=== PATIENT | male | born 1935 | race Caucasian/White ===

== ENCOUNTER 2017-05-14 15:24 | Emergency (ER) | payer BC ==
[~2017-05-14] VITALS: Ht 172.7 cm; Wt 80.5 kg
[~2017-05-14 15:24] MED LIST: CETI10TA10 PO; DIPH25CA37 PO; DTR/5 PO; ENOX30IN4 SQ; EPP3/2 IM; FINA5TAB4 PO; HYDR25TA4 PO; LOSA50TA6 PO; METO-478 PO; PRAV10TA39 PO; PSYL58.69 PO; TERA1CAP63 PO; WARF5TAB90 PO
[2017-05-14 15:28] VITALS: TEMP 36.8; Ht 172.7 cm; Wt 80.5 kg
[2017-05-14] MEDS ORDERED: LOSA1TAB38 PO (16:33)
[2017-05-14] MEDS ORDERED: DIPH25CA5 PO (16:33)
[2017-05-14] MEDS ORDERED: PSYL48.59 PO (16:33)
[2017-05-14] MEDS ORDERED: DTR/5 PO (16:33)
[2017-05-14] MEDS ORDERED: POTA20TA16 PO (16:33)
[2017-05-14] MEDS ORDERED: PRED-603 PO (16:33)
--- NOTE | 2017-05-14 16:59 | DIAGNOSTIC IMAGING REPORT ---
CHEST ONE VIEW PORTABLE CLINICAL HISTORY: Hypertension. COMPARISON STUDY: Chest radiograph June 30, 2013. FINDINGS: Lung volumes are normal. No pneumothorax or pleural effusion is present. There is no evidence for pulmonary edema. Moderate cardiomegaly is noted. IMPRESSION: 1. No acute cardiopulmonary findings. 2. Moderate cardiomegaly. Electronically signed by: Stevo Gonzalez M.D. 05/14/2017 4:57 PM Dictated Date/Time: 05/14/2017 4:57 PM
[2017-05-14 17:52] LABS: BASO % 0.4 %; BASO ABS # 0.02 K/uL (0-0.2); EOS % 1.4 %; EOS ABS # 0.07 K/uL (0-0.5); HEMATOCRIT 41.2 % (42-52); HEMOGLOBIN 13.9 g/dL (14.0-18.0); IG# 0.01 K/uL (0.00-0.02); LYMPH % 29.2 %; LYMPH ABS # 1.43 K/uL (1.2-3.4); MEAN CELL VOLUME 91.6 fL (80-100); MEAN CORPUSCULAR HEMOGLOBIN 30.9 pg (25-34); MEAN CORPUSCULAR HGB CONC 33.7 g/dl (32-36); MEAN PLATELET VOLUME 11.6 fL (7.4-10.4); MONO % 12.3 %; NEUT % 56.5 %; NEUT ABS # 2.76 K/uL (1.4-6.5); PLATELET COUNT 142 K/uL (130-400); RED CELL DISTRIBUTION WIDTH CV 13.5 % (11.5-14.5); RED CELL DISTRIBUTION WIDTH SD 44.8 fL (36.4-46.3); WHITE BLOOD COUNT 4.89 K/uL (4.8-10.8)
[2017-05-14 18:07] LABS: CALCIUM 9.4 mg/dl (8.5-10.1); CREATININE 0.9 mg/dl (0.60-1.40); POTASSIUM 3.8 mmol/L (3.5-5.1)
[2017-05-14 18:35] LABS: INR 2.1 (0.9-1.1)
[2017-05-14 19:21] VITALS: BP 160/106; PULSE 62; O2SAT 98
--- NOTE | 2017-05-14 23:44 | EMERGENCY ROOM VISIT NOTE ---
History Report prepared by Leelee: Berenice Alejandro Under the Supervision of: Dr. Joshua Stallings D.O. 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 The patient was at his PCP for a wellness check and his blood pressure was found to be high. He was sent to the ED. He is on Cozaar, HCTZ, and metoprolol. He has taken all of his medications. He is feeling well. He denies any headache, chest pain, SOB, nausea, vomiting, diarrhea, abdominal pain, or leg swelling. He is on Coumadin. Patient has absolutely no other complaints at this time. 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 A total of 10 systems reviewed and were otherwise negative. Past Medical & Surgical Medical Problems: (1) Hypertension Family History Noncontributory secondary to age. Social History Smoking Status: Never Smoker Marital Status: Occupation Status: retired Current/Historical Medications Scheduled Cetirizine Hcl (Zyrtec), 10 MG PO DAILY Epinephrine (Epipen), 0.3 MG IM UD Finasteride (Proscar), 5 MG PO HS Hydrochlorothiazide (Hctz), 25 MG PO QAM Losartan Potassium (Cozaar), 100 MG PO DAILY Metoprolol Succinate (Toprol Xl), 25 MG PO DAILY Oxybutynin Chloride (Ditropan), 5 MG PO DAILY Potassium Ext Rel (Klor-Con), 20 MEQ PO DAILY Pravastatin Sodium (Pravastatin Sodium), 10 MG PO HS Prednisone (Deltasone), 20 MG PO PRN Psyllium (Metamucil), 1 DOSE PO DAILY Terazosin Hcl (Hytrin), 10 MG PO HS Warfarin Sodium (Coumadin), 5 MG PO DAILY Scheduled PRN Diphenhydramine Hcl (Benadryl), 25 MG PO Q4H PRN for Allergic Reaction Allergies Coded Allergies: Aspirin (Verified Allergy, Unknown, SWELLING, 5/23/13) Physical Exam Vital Signs Date Time Temp Pulse Resp B/P (MAP) Pulse Ox O2 Delivery O2 Flow Rate FiO2 05/14/17 19:21 62 18 160/106 98 05/14/17 18:27 57 16 198/117 93 Room Air 05/14/17 16:46 71 05/14/17 16:40 57 156/95 05/14/17 15:28 36.8 82 17 197/111 98 Room Air Physical Exam GENERAL: Sitting up in bed, alert, well appearing, well nourished, no distress, non-toxic EYE EXAM: normal conjunctiva. PERRL and EOM's grossly intact. OROPHARYNX: no exudate, no erythema, lips, buccal mucosa, and tongue normal and mucous membranes are moist NECK: supple, no nuchal rigidity, no adenopathy, non-tender LUNGS: Clear to auscultation. Normal chest wall mechanics HEART: no murmurs, S1 normal and S2 normal ABDOMEN: abdomen soft, non-tender, normo-active bowel sounds, no masses, no rebound or guarding. BACK: Back is symmetrical on inspection and there is no deformity, no midline tenderness, no CVA tenderness. SKIN: no rashes and no bruising UPPER EXTREMITIES: upper extremities are grossly normal. LOWER EXTREMITIES: No pitting edema. NEURO EXAM: Normal sensorium, cranial nerves II-XII grossly intact, normal speech, no gross weakness of arms, no gross weakness of legs. Medical Decision & Procedures ER Provider Diagnostic Interpretation: Xray results as stated below per my and the radiologist's interpretation: CHEST ONE VIEW PORTABLE CLINICAL HISTORY: Hypertension. COMPARISON STUDY: Chest radiograph June 30, 2013. FINDINGS: Lung volumes are normal. No pneumothorax or pleural effusion is present. There is no evidence for pulmonary edema. Moderate cardiomegaly is noted. IMPRESSION: 1. No acute cardiopulmonary findings. 2. Moderate cardiomegaly. Electronically signed by: Stevo Gonzalez M.D. 05/14/2017 4:57 PM Dictated Date/Time: 05/14/2017 4:57 PM Laboratory Results 05/14/17 17:20 Red Blood Count 4.50, Mean Corpuscular Volume 91.6, Mean Corpuscular Hemoglobin 30.9, Mean Corpuscular Hemoglobin Concent 33.7, Mean Platelet Volume 11.6, Neutrophils (%) (Auto) 56.5, Lymphocytes (%) (Auto) 29.2, Monocytes (%) (Auto) 12.3, Eosinophils (%) (Auto) 1.4, Basophils (%) (Auto) 0.4, Neutrophils # (Auto ) 2.76, Lymphocytes # (Auto) 1.43, Monocytes # (Auto) 0.60, Eosinophils # (Auto ) 0.07, Basophils # (Auto) 0.02 05/14/17 17:20 Test 05/14/17 17:20 White Blood Count 4.89 K/uL (4.8-10.8) Red Blood Count 4.50 M/uL (4.7-6.1) Hemoglobin 13.9 g/dL (14.0-18.0) Hematocrit 41.2 % (42-52) Mean Corpuscular Volume 91.6 fL (80-100) Mean Corpuscular Hemoglobin 30.9 pg (25-34) Mean Corpuscular Hemoglobin Concent 33.7 g/dl (32-36) Platelet Count 142 K/uL (130-400) Mean Platelet Volume 11.6 fL (7.4-10.4) Neutrophils (%) (Auto) 56.5 % Lymphocytes (%) (Auto) 29.2 % Monocytes (%) (Auto) 12.3 % Eosinophils (%) (Auto) 1.4 % Basophils (%) (Auto) 0.4 % Neutrophils # (Auto) 2.76 K/uL (1.4-6.5) Lymphocytes # (Auto) 1.43 K/uL (1.2-3.4) Monocytes # (Auto) 0.60 K/uL (0.11-0.59) Eosinophils # (Auto) 0.07 K/uL (0-0.5) Basophils # (Auto) 0.02 K/uL (0-0.2) RDW Standard Deviation 44.8 fL (36.4-46.3) RDW Coefficient of Variation 13.5 % (11.5-14.5) Immature Granulocyte % (Auto) 0.2 % Immature Granulocyte # (Auto) 0.01 K/uL (0.00-0.02) Prothrombin Time 22.2 SECONDS (9.0-12.0) Prothromb Time International Ratio 2.1 (0.9-1.1) Anion Gap 4.0 mmol/L (3-11) Est Creatinine Clear Calc Drug Dose 60.2 ml/min Estimated GFR () 91.2 Estimated GFR (Non- 78.7 BUN/Creatinine Ratio 13.2 (10-20) Calcium Level 9.4 mg/dl (8.5-10.1) Laboratory results per my review. ECG Indication: other (hypertension) Rate (beats per minute): 53 Rhythm: atrial fibrillation Findings: Q waves (Septal), left axis deviation Comparison ECG Date: no prior available Change: Patient's electrocardiogram interpreted by me. ED Course ED COURSE: Vital signs were reviewed and showed hypertension. The patients medical record was reviewed The above diagnostic studies were performed and reviewed. ED treatments and interventions as stated above. 1607: The patient was evaluated in room C4. A complete history and physical examination was performed. 1705: Upon reevaluation, the patient is resting comfortably. I discussed my findings with the patient and he understands and agrees with the treatment plan. Based on the patients age, coexisting illnesses, exam and lab findings the decision to treat as an outpatient was made. The patient remained stable while under my care. The patient appeared well at the time of discharge. Medical Decision Differential diagnoses includes but is not limited to acute coronary syndrome, myocardial infarction, pericarditis, pulmonary embolus, aortic dissection, pneumonia, pneumothorax, musculoskeletal, shingles, esophageal. Patient is an 82-year-old male who presents to ER referred in by PCP for hypertension. He is evidently no complaints. Systolic pressures in the 190s. CBC and BMP was unremarkable. INR was therapeutic. EKG showed A. fib which is not new. Chest x-ray was unremarkable. Systolic blood pressures trended down to 150s while in the ER and resting. Will not treat at this time is asymptomatic. Patient was updated bedside and discharged follow-up with PCP as an outpatient. Discussed with Pt concerning signs and symptoms to watch out for. Pt was instructed to follow up with their PCP and discussed with the patient their option to return to the ED at anytime for persistent or worsening symptoms. The appropriate anticipatory guidance and out-patient management, including indications for return to the emergency department, were explained at length to the patient and understood. Medication Reconcilliation Current Medication List: was personally reviewed by me Blood Pressure Screening Patient's blood pressure: Elevated blood pressure Blood pressure disposition: Elevated BP felt to be situational Impression Primary Impression: HTN (hypertension) Scribe Attestation The scribe's documentation has been prepared under my direction and personally reviewed by me in its entirety. I confirm that the note above accurately reflects all work, treatment, procedures, and medical decision making performed by me. Departure Information Dispostion Home / Self-Care Referrals Jose Balderas MD (PCP) Forms HOME CARE DOCUMENTATION FORM, IMPORTANT VISIT INFORMATION, WORK / SCHOOL INSTRUCTIONS Patient Instructions ED HTN Established, My [facility] Additional Instructions Please follow up with your primary care doctor with in the next 24 hours. Any worsening of your symptoms, please return to the ED immediately. This includes any fevers greater than 100.4, worsening pain, chest pain, shortness breath, persistent nausea, vomiting, unable to eat or drink, or any other concerning signs or symptoms from your standpoint. Please follow up with your primary care doctor in regards to your elevated blood pressure. Problem Qualifiers Primary Impression: HTN (hypertension) Hypertension type: unspecified Qualified Codes: I10 - Essential (primary) hypertension
== END 2017-05-14 19:15 | disposition home or self-care (01) ==
LOC: C.EDB 15:25 → C.EDC 19:15
DX: I10 Essential (primary) hypertension (principal); I48.91 Unspecified atrial fibrillation; Z79.01 Long term (current) use of anticoagulants

== ENCOUNTER 2022-01-24 09:51 | Inpatient (IN) ==
[2022-01-24] MEDS ORDERED: VANCOMYCIN HCL 1,500 MG in SODIUM CHLORIDE 0.9% 500 ML IV ONE (10:09)
[2022-01-24] MEDS ORDERED: PIPERACILLIN/TAZOBACTAM 4.5 GM/120 ML BAG IV ONE (10:09)
[2022-01-24] MEDS ORDERED: VANCOMYCIN CONSULT ACTIVE PRN (10:09)
--- NOTE | 2022-01-24 10:09 | Emergency Department Note ---
Impression & Plan Postoperative wound infection ADMIT ED Provider Note HPI: The patient is an 86-year-old gentleman who presents the emergency department for evaluation of a possible infected pacemaker site/pocket. Patient presented to the cardiology office as an outpatient today for evaluation of some redness and some drainage that he had from the pacemaker site that was placed appro ximately 1 month ago on December 26. Patient states that he just noticed some redness and drainage from the site today and walked into the cardiology office with Dr. Claros today for evaluation. I did receive a phone call from Dr. Claros prior to the patient's arrival and he stated that the area did appear to be infected and patient likely would require admission for antibiotics and possibly site washout/revision and pacemaker reimplantation if determined appropriate. Patient denies any systemic symptoms, denies any fever, denies any chest pain or shortness of breath, he is overall well-appearing on arrival and in no acute distress. ROS: -Skin: Pacemaker site infection *10 point review systems was conducted and is otherwise negative unless stated above *Outpatient medications and allergy history reviewed PE: General: Alert HEENT: Normocephalic, trachea midline Eyes: Extraocular eye movement is intact, no scleral erythema Pulmonary: Clear to auscultation bilaterally, no wheezing Cardio: Regular rate and rhythm GI: Abdomen is soft, nontender : No suprapubic tenderness MSK: No evidence of trauma or malformation of the extremities, no edema Skin: There is mild wound dehiscence to the lateral aspect of the pacemaker pocket site with some surrounding erythema and minimal purulent drainage Neuro: Alert, no focal deficits 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 Pacemaker site does appear to have active infection with moderate surrounding erythema and purulent drainage. Blood cultures were drawn in the ED, wound culture also obtained, lab work is largely reassuring as the patient does not have any fever or leukocytosis. Patient will be admitted for broad-spectrum antibiotics and EP consultation to determine whether or not the site will require washout and revision and possible pacemaker reimplantation. Case was initially discussed with on-call cardiology, Dr. Claros. Case was then discussed with [facility] hospitalist, Dr. Kirk, and the patient was admitted in stable condition for further care. Diagnosis: 1. Postoperative wound infection of pacemaker site Disposition: Admission Ricardo Stubbs DO Emergency Medicine Past Med/Surg History Medical History (Updated 01/24/22 @ 12:38 by Ricardo Stubbs DO) DJD (degenerative joint disease) (07/27/13) HTN (hypertension) Hypertension Social History Smoking Status: Never smoker Hx Alcohol Use: No Hx Substance Use: No Beliefs That Will Affect Care: None Current Living Situation: Spouse Feels Safe at Home: Yes Assistive Devices: Cane Allergies Allergies Allergy/AdvReac Type Severity Reaction Status Date / Time aspirin Allergy Unknown SWELLING Verified 11/06/21 13:34 Home Meds Home Medications Medication Instructions Recorded Confirmed diphenhydramine HCl 25 mg tablet 25 mg PO TID PRN Edema 10/26/18 12/25/21 (Benadryl Allergy) epinephrine 0.3 mg/0.3 mL 0.3 mg IM Q10M PRN Edema 10/26/18 12/25/21 injection, auto-injector (EpiPen) losartan 100 mg tablet (Cozaar) 100 mg PO DAILY 10/26/18 12/25/21 pravastatin 10 mg tablet 10 mg PO DAILY 10/26/18 12/25/21 warfarin 5 mg tablet (Coumadin) 5 mg PO DAILY 10/26/18 12/25/21 spironolactone 25 mg tablet 25 mg PO DAILY 11/06/21 12/25/21 acetaminophen 500 mg tablet 500 mg PO Q6H PRN Pain 12/25/21 12/25/21 betamethasone dipropionate 0.05 % 1 applic topical DAILY 12/25/21 12/25/21 topical cream finasteride 5 mg tablet 5 mg PO DAILY 12/25/21 12/25/21 hydralazine 25 mg tablet 25 mg PO TID 12/25/21 12/25/21 hydrochlorothiazide 25 mg tablet 25 mg PO DAILY 12/25/21 12/25/21 hydrocortisone 2.5 % topical 1 applic topical DAILY 12/25/21 12/25/21 ointment oxybutynin chloride 5 mg tablet 5 mg PO DAILY 12/25/21 12/25/21 prednisone 20 mg tablet 20 mg PO DAILY PRN Edema 12/25/21 12/25/21 triamcinolone acetonide 0.1 % 1 applic topical BID 12/25/21 12/25/21 topical cream Previous Rx's Medication Instructions Recorded terazosin 10 mg capsule 10 mg PO DAILY #90 caps 11/06/21 metoprolol succinate 25 mg 50 mg PO DAILY #60 tabs 12/25/21 tablet,extended release 24 hr Results & Data (ED) Vital Signs Vital Signs - 24 hr 01/24/22 09:56 01/24/22 10:28 01/24/22 10:30 Temperature 36.5 C Temperature Source Oral Pulse Rate 79 Respiratory Rate 18 Respiratory Effort / Characteristics Non-Labored Respiratory Depth Normal Blood Pressure 151/92 H 137/80 Blood Pressure Mean 111 99 Pulse Oximetry 94 Oxygen Delivery Method Room Air Room Air Sepsis Recent Fever Within 48 Hours No Sepsis New/Unexplained Change in Mental Status No Sepsis Action Taken by Nursing No Action Required 01/24/22 10:30 01/24/22 11:00 01/24/22 11:00 Temperature Temperature Source Pulse Rate 61 60 Respiratory Rate 20 21 Respiratory Effort / Characteristics Respiratory Depth Blood Pressure 133/79 Blood Pressure Mean 97 Pulse Oximetry Oxygen Delivery Method Sepsis Recent Fever Within 48 Hours Sepsis New/Unexplained Change in Mental Status Sepsis Action Taken by Nursing 01/24/22 11:30 01/24/22 11:30 Temperature Temperature Source Pulse Rate 60 Respiratory Rate 14 Respiratory Effort / Characteristics Respiratory Depth Blood Pressure 140/86 Blood Pressure Mean 104 Pulse Oximetry Oxygen Delivery Method Sepsis Recent Fever Within 48 Hours Sepsis New/Unexplained Change in Mental Status Sepsis Action Taken by Nursing Laboratory Data Result diagrams: 01/24/22 10:15 01/24/22 10:15 Lab Results 01/24/22 01/24/22 01/24/22 Range/Units 10:15 10:15 10:15 WBC 5.87 (4.8-10.8) K/ul RBC 4.54 L (4.63-6.08) M/uL Hgb 14.1 (14.0-18.0) g/dl Hct 41.2 (40.1-51.0) % MCV 90.7 (80.0-100.0) fL MCH 31.1 (25.0-34.0) pg MCHC 34.2 (32.0-36.0) g/dL RDW Std Deviation 41.7 (36.4-46.3) fL RDW Coeff of Cipriano 12.6 (11.5-14.5) % Plt Count 141 (130-400) K/uL MPV 11.3 (9.4-12.4) fL Immature Gran % (Auto) 0.3 % Neut % (Auto) 73.9 % Lymph % (Auto) 14.5 % Sierra % (Auto) 9.9 % Eos % (Auto) 0.9 % Baso % (Auto) 0.5 % Neut # (Auto) 4.34 (1.4-6.5) K/uL Lymph # (Auto) 0.85 L (1.2-3.4) K/uL Sierra # (Auto) 0.58 (0.24-0.82) K/uL Eos # (Auto) 0.05 (0-0.50) K/uL Baso # (Auto) 0.03 (0-0.2) K/uL Immature Gran # (Auto) 0.02 (0.00-0.02) K/uL Acanthocytes (Spur) 1+ Sodium 139 (136-145) mmol/L Potassium 4.1 (3.5-5.1) mmol/L Chloride 107 (98-107) mmol/L Carbon Dioxide 25 (21-32) mmol/L Anion Gap 7 (3-11) BUN 20 (6-23) mg/dl Creatinine 0.99 (0.6-1.4) mg/dl Est Cr Clr Drug Dosing 50.9 ml/min Est GFR ( Amer) 79.0 ml/min Est GFR (Non-Af Amer) 68.2 ml/min BUN/Creatinine Ratio 20.2 H (10-20) Glucose 101 H (70-99(Fasting)) mg/dl Lactate (0.4-2.0) mmol/L Calcium 9.9 (8.5-10.1) mg/dl Magnesium 1.8 (1.7-2.4) mg/dl Total Bilirubin 0.8 (0.2-1.0) mg/dl Direct Bilirubin 0.2 (0-0.2) mg/dl AST 20 (13-39) U/L ALT 16 (7-52) U/L Alkaline Phosphatase 68 (34-104) U/L Troponin I High Sens 4.3 (0-20) pg/ml Total Protein 6.8 (6.0-8.3) gm/dl Albumin 3.7 (3.4-5.0) gm/dl Procalcitonin < 0.05 (0-0.5) ng/ml SARS-CoV-2, RNA, NAAT (NEGATIVE) 01/24/22 01/24/22 Range/Units 11:00 11:05 WBC (4.8-10.8) K/ul RBC (4.63-6.08) M/uL Hgb (14.0-18.0) g/dl Hct (40.1-51.0) % MCV (80.0-100.0) fL MCH (25.0-34.0) pg MCHC (32.0-36.0) g/dL RDW Std Deviation (36.4-46.3) fL RDW Coeff of Cipriano (11.5-14.5) % Plt Count (130-400) K/uL MPV (9.4-12.4) fL Immature Gran % (Auto) % Neut % (Auto) % Lymph % (Auto) % Sierra % (Auto) % Eos % (Auto) % Baso % (Auto) % Neut # (Auto) (1.4-6.5) K/uL Lymph # (Auto) (1.2-3.4) K/uL Sierra # (Auto) (0.24-0.82) K/uL Eos # (Auto) (0-0.50) K/uL Baso # (Auto) (0-0.2) K/uL Immature Gran # (Auto) (0.00-0.02) K/uL Acanthocytes (Spur) Sodium (136-145) mmol/L Potassium (3.5-5.1) mmol/L Chloride (98-107) mmol/L Carbon Dioxide (21-32) mmol/L Anion Gap (3-11) BUN (6-23) mg/dl Creatinine (0.6-1.4) mg/dl Est Cr Clr Drug Dosing ml/min Est GFR ( Amer) ml/min Est GFR (Non-Af Amer) ml/min BUN/Creatinine Ratio (10-20) Glucose (70-99(Fasting)) mg/dl Lactate 1.7 (0.4-2.0) mmol/L Calcium (8.5-10.1) mg/dl Magnesium (1.7-2.4) mg/dl Total Bilirubin (0.2-1.0) mg/dl Direct Bilirubin (0-0.2) mg/dl AST (13-39) U/L ALT (7-52) U/L Alkaline Phosphatase (34-104) U/L Troponin I High Sens (0-20) pg/ml Total Protein (6.0-8.3) gm/dl Albumin (3.4-5.0) gm/dl Procalcitonin (0-0.5) ng/ml SARS-CoV-2, RNA, NAAT NEGATIVE (NEGATIVE) Administered Medications Vancomycin HCl 1,500 mg/ (Sodium Chloride) 530 mls @ 200 mls/hr IV NOW ONE Stop: 01/24/22 12:47 Last Admin: 01/24/22 12:03 Dose: 200 mls/hr Documented By: BANDAR Discontinued Medications Piperacillin Sod/Tazobactam Sod (Zosyn) 4.5 gm in 120 mls @ 240 mls/hr IV NOW ONE Stop: 01/24/22 10:38 Last Infusion: 01/24/22 11:32 Dose: 0 mls/hr Documented By: Admin: 01/24/22 11:02 Dose: 240 mls/hr Documented By: BANDAR Imaging Data Radiologist's Impression: Chest X-Ray 01/24/22 09:58 XR chest 1V portable HISTORY: Sepsis COMPARISON: Chest 12/25/2021. FINDINGS: No pneumothorax. No pleural effusions. The left-sided single lead pacemaker. The lead appears intact. The heart remains mildly enlarged. No evidence for pulmonary edema. No focal lung consolidations to suggest a pneumonia. IMPRESSION: No significant change compared to the prior study. No acute process. ACT 112: Negative or not required by law. Electronically signed by: Tomi Smith M.D. 01/24/2022 10:18 AM Discharge Plan Visit Data Chief Complaint: Referred by Doctor Stated Complaint: REF BY DR, PACEMAKER PROBLEMS ED Provider: Ricardo Stubbs Discharge Problem: Postoperative wound infection Patient Disposition: Admitted As Inpatient Forms Stand Alone Forms: [facility] Prescriptions Prescriptions: No Action diphenhydramine HCl [Benadryl Allergy] 25 mg tablet 25 mg PO TID PRN (Reason: Edema) epinephrine [EpiPen] 0.3 mg/0.3 mL auto-injector 0.3 mg IM Q10M PRN (Reason: Edema) losartan [Cozaar] 100 mg tablet 100 mg PO DAILY pravastatin 10 mg tablet 10 mg PO DAILY warfarin [Coumadin] 5 mg tablet 5 mg PO DAILY spironolactone 25 mg tablet 25 mg PO DAILY terazosin 10 mg capsule 10 mg PO DAILY Qty: 90 3RF prednisone 20 mg Tablet 20 mg PO DAILY PRN (Reason: Edema) hydralazine 25 mg Tablet 25 mg PO TID acetaminophen 500 mg Tablet 500 mg PO Q6H PRN (Reason: Pain) triamcinolone acetonide 0.1 % Cream 1 applic TOPICAL BID betamethasone dipropionate 0.05 % Cream 1 applic TOPICAL DAILY hydrochlorothiazide 25 mg Tablet 25 mg PO DAILY hydrocortisone 2.5 % Ointment 1 applic TOPICAL DAILY oxybutynin chloride 5 mg Tablet 5 mg PO DAILY finasteride 5 mg Tablet 5 mg PO DAILY metoprolol succinate 25 mg Tablet Extended Release 24 Hr 50 mg PO DAILY Qty: 60 11RF Rx Instructions: Take 0.5 tablets in the morning Referrals Referrals: Reji Rivera MD [Primary Care Provider] -
--- NOTE | 2022-01-24 10:21 | XRay Report ---
XR chest 1V portable HISTORY: Sepsis COMPARISON: Chest 12/25/2021. FINDINGS: No pneumothorax. No pleural effusions. The left-sided single lead pacemaker. The lead appea rs intact. The heart remains mildly enlarged. No evidence for pulmonary edema. No focal lung consolid ations to suggest a pneumonia. IMPRESSION: No significant change compared to the prior study. No acute process. ACT 112: Negative or not required by law. Electronically signed by: Tomi Smith M.D. 01/24/2022 10:18 AM
[2022-01-24 11:06] LABS: Hematocrit (blood only) 41.2 % (40.1-51.0); Hemoglobin 14.1 g/dl (14.0-18.0); Mean Corpuscular Hemoglobin 31.1 pg (25.0-34.0); Mean Corpuscular Hgb Conc 34.2 g/dL (32.0-36.0); Mean Corpuscular Volume 90.7 fL (80.0-100.0); Mean Platelet Volume 11.3 fL (9.4-12.4); Platelet Count 141 K/uL (130-400); RDW Coefficient of Variation 12.6 % (11.5-14.5); RDW Standard Deviation 41.7 fL (36.4-46.3); Red Blood Count 4.54 M/uL (4.63-6.08); White Blood Count 5.87 K/ul (4.8-10.8)
[2022-01-24 11:10] LABS: Acanthocytes 1+; Basophils # (auto) 0.03 K/uL (0-0.2); Basophils % (auto) 0.5 %; Eosinophils # (auto) 0.05 K/uL (0-0.50); Eosinophils % (auto) 0.9 %; Immature Granulocytes # (auto) 0.02 K/uL (0.00-0.02); Immature Granulocytes % (auto) 0.3 %; Lymphocytes # (auto) 0.85 K/uL (1.2-3.4); Lymphocytes % (auto) 14.5 %; Monocytes # (auto) 0.58 K/uL (0.24-0.82); Monocytes % (auto) 9.9 %; Neutrophils # (auto) 4.34 K/uL (1.4-6.5); Neutrophils % (auto) 73.9 %
[2022-01-24 11:22] LABS: Albumin Level 3.7 gm/dl (3.4-5.0); BUN Creatinine Ratio 20.2 (10-20); Bilirubin Direct 0.2 mg/dl (0-0.2); Bilirubin,Total 0.8 mg/dl (0.2-1.0); Calcium 9.9 mg/dl (8.5-10.1); Creatinine Clr Calc Pharmacy 50.9 ml/min; Est GFR (Non-African American) 68.2 ml/min; Magnesium 1.8 mg/dl (1.7-2.4); Potassium 4.1 mmol/L (3.5-5.1); Total Protein 6.8 gm/dl (6.0-8.3); Troponin I High Sensitivity 4.3 pg/ml (0-20)
--- NOTE | 2022-01-24 12:10 | History & Physical Report ---
Date of Service January 24, 2022 Assessment & Plan (1) Pacemaker infection: Plan: Suspected pacemaker hardware infection No leukocytosis, afebrile Mild erythema on clinical evaluation, no purulence or discharge at time of assessment, overlying site is nontender and is not warm. Ultrasound ordered for additional evaluation CRP pending/trended Blood cultures, wound culture pending Received empiric Vanco/Zosyn in ER. Remains stable on admission, no history of MRSA colonization/infection. We will continue Vanco/Unasyn on admission CXR: No acute process. Left-sided single-lead pacemaker with lead intact. No focal lung consolidations. Soft tissue ultrasound pending for evaluation of abscess A. fib/tachybradycardia syndrome Pacer in place as above Continue metoprolol Admitting EKG: Ventricular paced rhythm, rate 84, QTc 42 Adequate rate, no chest pain, no concerning cardiac symptoms at admission Hypertension Continue metoprolol and spironolactone Patient no longer takes losartan, hydrochlorothiazide, or hydralazine Per review of medications with him and his BSG adequately controlled at admission HLD - Pravastatin 10mg (daily) BPH with LUTS, followed by urology Continue terazosin, finasteride DVT prophylaxis: Heparin CODE STATUS: DNR/DNI, discussed with patient and at bedside Disposition: Medical/surgical. No arrhythmia, pacer in place, no cardiac symptoms. Diet: Heart healthy, n.p.o. at midnight if surgical intervention/explantation is expected (2) Atrial fibrillation: (3) Tachy-hood syndrome: (4) Benign localized prostatic hyperplasia with lower urinary tract symptoms (LUTS): (5) Hypertension: History of Present Illness Primary Care Provider: Reji Rivera MD Joseph is an 86-year-old male with a past medical history of A. fib, tachybradycardia syndrome s/p pacemaker placement, hypertension, DJD who had a pacemaker placed for tachybradycardia syndrome on 01/06/2022 and who presents w ith erythema, purulence, and oozing at his surgical site concerning for hardware infection. Case was discussed by ER provider with cardiology, recommended for admission to medical service, antibiotic treatment, and reevaluation for potential salvage. "Don" is seen with his at the bedside. Reports his pacemaker started to have seepage of blood and pus starting day of admission. Mostly blood, some thick orange discharge. No white/milky discharge. NO change last few days. NO fevers or chills. NO pain overlying pacer site. No fluttering/palps. no chest pain, chest pressure, or chest discomfort. No shortness of breath. No nausea/vomiting/diarrhea. Denies any other symptoms, reports overall he feels well except he was concerned about the discharge which was just a couple of cc this morning. No prior history of surgical site infections. No history of pseudomonal infections. Medical History: Reviewed Medications: Reviewed. Took meds this am. Surgical History: Reviewed Allergies: Reviewed Social History: No tobacco product use. No alcohol use. Code Status: Surrogate DM would be Maribell [phone]. DNR/DNI Allergies Allergy/AdvReac Type Severity Reaction Status Date / Time aspirin Allergy Unknown SWELLING Verified 11/06/21 13:34 Home Medications Medication Instructions Recorded Confirmed Type diphenhydramine HCl 25 mg tablet 25 mg PO TID PRN Edema 10/26/18 12/25/21 History (Benadryl Allergy) epinephrine 0.3 mg/0.3 mL 0.3 mg IM Q10M PRN Edema 10/26/18 12/25/21 History injection, auto-injector (EpiPen) losartan 100 mg tablet (Cozaar) 100 mg PO DAILY 10/26/18 12/25/21 History pravastatin 10 mg tablet 10 mg PO DAILY 10/26/18 12/25/21 History warfarin 5 mg tablet (Coumadin) 5 mg PO DAILY 10/26/18 12/25/21 History spironolactone 25 mg tablet 25 mg PO DAILY 11/06/21 12/25/21 History terazosin 10 mg capsule 10 mg PO DAILY #90 caps 11/06/21 12/25/21 Rx acetaminophen 500 mg tablet 500 mg PO Q6H PRN Pain 12/25/21 12/25/21 History betamethasone dipropionate 0.05 % 1 applic topical DAILY 12/25/21 12/25/21 His tory topical cream finasteride 5 mg tablet 5 mg PO DAILY 12/25/21 12/25/21 History hydralazine 25 mg tablet 25 mg PO TID 12/25/21 12/25/21 History hydrochlorothiazide 25 mg tablet 25 mg PO DAILY 12/25/21 12/25/21 History hydrocortisone 2.5 % topical 1 applic topical DAILY 12/25/21 12/25/21 History ointment metoprolol succinate 25 mg 50 mg PO DAILY #60 tabs 12/25/21 12/25/21 Rx tablet,extended release 24 hr oxybutynin chloride 5 mg tablet 5 mg PO DAILY 12/25/21 12/25/21 History prednisone 20 mg tablet 20 mg PO DAILY PRN Edema 12/25/21 12/25/21 History triamcinolone acetonide 0.1 % 1 applic topical BID 12/25/21 12/25/21 History topical cream Past Med/Surg History Medical History DJD (degenerative joint disease) (07/27/13) HTN (hypertension) Hypertension Social History Smoking Status: Never smoker Hx Alcohol Use: No Hx Substance Use: No Beliefs That Will Affect Care: None Current Living Situation: Spouse Feels Safe at Home: Yes Assistive Devices: Cane Review of Systems Review of Systems: All systems reviewed & are unremarkable except as noted in HPI & below Physical Exam Physical Exam: General: Alert and oriented to name and place.. NAD. Co operative. HEENT: Atraumatic, normocephalic. Vision/hearing grossly intact. Pulm: CTAB A&P. -wheezes, -rales, -rhonchi. Symmetrical chest rise. No increase in work of breathing. No respiratory distress. Cardiac: RRR, -mrg. Radial pulses intact and symmetrical. Pacemaker site intact overlying left chest. Inferior border with mild erythema, no purulent/clear/bloody drainage is appreciated at time of exam. Nontender palpation. No fluctuance. Abdominal: Nontender, nondistended, soft. BS present. Results & Data Results & Data ([facility]) Vital Signs (Past 12 Hours) Vital Signs Temp Pulse Resp BP Pulse Ox O2 Del Method 01/24/22 11:30 60 14 01/24/22 11:30 140/86 01/24/22 11:00 60 21 01/24/22 11:00 133/79 01/24/22 10:30 61 20 01/24/22 10:30 137/80 01/24/22 10:28 Room Air 01/24/22 09:56 36.5 C 79 18 151/92 H 94 Room Air PG Care Time/CCT Total # of Minutes Spent Total Time Spent with Patient: Total time spent is greater than 50% in coordination of care (as documented) at patient's floor/unit and/or counseling patient: Coding Level of Care Code 17343 Initial Inpt Care Lvl 2 Diagnoses Pacemaker infection T82.7XXA Atrial fibrillation I48.91 Tachy-hood syndrome I49.5 Benign localized prostatic hyperplasia with lower urinary tract symptoms (LUTS) N40.1 Hypertension I10
[2022-01-24] MEDS ORDERED: POLYETHYLENE (MIRALAX) 17 GM PACK PO PRN (15:20)
[2022-01-24] MEDS ORDERED: ACETAMINOPHEN 325 MG TAB PO PRN (15:20)
--- NOTE | 2022-01-24 15:33 | Electrocardiogram Report ---
Test Reason : Blood Pressure : / mmHG Vent. Rate : 084 BPM Atrial Rate : 159 BPM P-R Int : 000 ms QRS Dur : 158 ms QT Int : 408 ms P-R-T Axes : 000 -77 078 degrees QTc Int : 482 ms Ventricular-paced rhythm Abnormal ECG When compared with ECG of 25-DEC-2021 13:05, No significant change Confirmed by Marek Negrete ([id number]) on 01/24/2022 3:33:51 PM Referred By: REFERRED SELF Confirmed By:Marek Negrete
--- NOTE | 2022-01-24 15:35 | Cardiology Consultation ---
Date of Consultation January 24, 2022 Assessment & Plan (1) Postoperative wound infection: (2) Pacemaker infection: (3) Atrial fibrillation: (4) Tachy-hood syndrome: Plan The pocket does not appear to be infected. There is a little bit of redness but no warmth or pain around the pocket. No purulent discharge. The patient is afebrile. His WBC count is normal. I agree with wound cultures and blood cultures. Empiric antibiotics for now. Hopefully this is just minor pocket irritation with serosanguineous fluid and not a pacemaker pocket infection. We will follow with you during his hospital stay. History of Present Illness Attending Physician: Kojo Kirk MD History of Present Illness This is an 86-year-old male patient with a history of tachybradycardia syndrome and permanent atrial fibrillation who several weeks ago underwent a pacemaker insertion. He had been doing well postop but noted some clear yellow drainage from his pacemaker site. No fever or chills. No purulent drainage. No pain, erythema or warmth over the area. The pacemaker is functioning appropriately. He has been referred to the hospital for antibiotics. Blood cultures and wound cultures are pending. Allergies Allergy/AdvReac Type Severity Reaction Status Date / Time aspirin Allergy Unknown SWELLING Verified 11/06/21 13:34 Home Medications Medication Instructions Recorded Confirmed Type diphenhydramine HCl 25 mg tablet 25 mg PO TID PRN Edema 10/26/18 12/25/21 History (Benadryl Allergy) epinephrine 0.3 mg/0.3 mL 0.3 mg IM Q10M PRN Edema 10/26/18 12/25/21 History injection, auto-injector (EpiPen) losartan 100 mg tablet (Cozaar) 100 mg PO DAILY 10/26/18 12/25/21 History pravastatin 10 mg tablet 10 mg PO DAILY 10/26/18 12/25/21 History warfarin 5 mg tablet (Coumadin) 5 mg PO DAILY 10/26/18 12/25/21 History spironolactone 25 mg tablet 25 mg PO DAILY 11/06/21 12/25/21 History terazosin 10 mg capsule 10 mg PO DAILY #90 caps 11/06/21 12/25/21 Rx acetaminophen 500 mg tablet 500 mg PO Q6H PRN Pain 12/25/21 12/25/21 History betamethasone dipropionate 0.05 % 1 applic topical DAILY 12/25/21 12/25/21 History topical cream finasteride 5 mg tablet 5 mg PO DAILY 12/25/21 12/25/21 History hydralazine 25 mg tablet 25 mg PO TID 12/25/21 12/25/21 History hydrochlorothiazide 25 mg tablet 25 mg PO DAILY 12/25/21 12/25/21 History hydrocortisone 2.5 % topical 1 applic topical DAILY 12/25/21 12/25/21 History ointment metoprolol succinate 25 mg 50 mg PO DAILY #60 tabs 12/25/21 12/25/21 Rx tablet,extended release 24 hr oxybutynin chloride 5 mg tablet 5 mg PO DAILY 12/25/21 12/25/21 History prednisone 20 mg tablet 20 mg PO DAILY PRN Edema 12/25/21 12/25/21 History triamcinolone acetonide 0.1 % 1 applic topical BID 12/25/21 12/25/21 History topical cream Patient History Medical History DJD (degenerative joint disease) (07/27/13) HTN (hypertension) Hypertension Social History Smoking Status: Never smoker Hx Alcohol Use: No Hx Substance Use: No Preferred Language: Tamaz[place] Communication Ability: Effective Boiling House Oiler Required: No Beliefs That Will Affect Care: None Current Living Situation: Spouse Other Information That Helps Us Care for You: No Feels Safe at Home: Yes Safety Concerns: Feels Safe At This Time Assistive Devices: Cane Review of Systems Review of Systems: Review of Systems: See HPI for pertinent positives. All other 10 point review of systems are negative. Physical Exam Physical Exam: General: no acute distress and stated age Head: normocephalic, no masses, lesions, tenderness or abnormalities Eyes: conjunctiva are pink and non-injected, sclera clear Neck: supple, no adenopathy, no bruits, normal jugular venous pulse, no hepatojugular reflux Chest: normal shape and normal respiratory effort Lungs: clear to auscultation and percussion Cardiac Exam: - regular rate & rhythm, no murmurs gallops or rubs - normal S1, normal S2 Pulses: 2(+) throughout Abdomen: abdomen soft, non-tender, no abnormal masses and no hepatosplenomegaly Musculoskeletal: no gait disturbance, no joint inflammation, no deforming arthritis Extremities: no edema and no cyanosis Neuro: grossly normal exam Results & Data ([facility]) Vital Signs (Past 12 Hours) Vital Signs Temp Pulse Pulse Resp BP BP Pulse Ox 01/24/22 15:24 36.7 C 74 16 160/92 H 98 01/24/22 12:30 62 22 01/24/22 12:30 151/106 H 01/24/22 12:03 80 18 01/24/22 11:30 60 14 01/24/22 11:30 140/86 01/24/22 11:00 60 21 01/24/22 11:00 133/79 01/24/22 10:30 61 20 01/24/22 10:30 137/80 01/24/22 10:28 01/24/22 09:56 36.5 C 79 18 151/92 H 94 O2 Del Method 01/24/22 15:24 Room Air 01/24/22 12:30 01/24/22 12:30 01/24/22 12:03 01/24/22 11:30 01/24/22 11:30 01/24/22 11:00 01/24/22 11:00 01/24/22 10:30 01/24/22 10:30 01/24/22 10:28 Room Air 01/24/22 09:56 Room Air Laboratory Results Laboratory Results - last 24 hr 01/24/22 01/24/22 01/24/22 10:15 10:15 10:15 WBC 5.87 RBC 4.54 L Hgb 14.1 Hct 41.2 MCV 90.7 MCH 31.1 MCHC 34.2 RDW Std Deviation 41.7 RDW Coeff of Cipriano 12.6 Plt Count 141 MPV 11.3 Immature Gran % (Auto) 0.3 Neut % (Auto) 73.9 Lymph % (Auto) 14.5 [place] % (Auto) 9.9 Eos % (Auto) 0.9 Baso % (Auto) 0.5 Neut # (Auto) 4.34 Lymph # (Auto) 0.85 L [place] # (Auto) 0.58 Eos # (Auto) 0.05 Baso # (Auto) 0.03 Immature Gran # (Auto) 0.02 Acanthocytes (Spur) 1+ Sodium 139 Potassium 4.1 Chloride 107 Carbon Dioxide 25 Anion Gap 7 BUN 20 Creatinine 0.99 Est Cr Clr Drug Dosing 50.9 Est GFR ( Amer) 79.0 Est GFR (Non-Af Amer) 68.2 BUN/Creatinine Ratio 20.2 H Glucose 101 H Lactate Calcium 9.9 Magnesium 1.8 Total Bilirubin 0.8 Direct Bilirubin 0.2 AST 20 ALT 16 Alkaline Phosphatase 68 Troponin I High Sens 4.3 C-Reactive Protein Total Protein 6.8 Albumin 3.7 Procalcitonin < 0.05 SARS-CoV-2, RNA, NAAT 01/24/22 01/24/22 01/24/22 10:15 11:00 11:05 WBC RBC Hgb Hct MCV MCH MCHC RDW Std Deviation RDW Coeff of Cipriano Plt Count MPV Immature Gran % (Auto) Neut % (Auto) Lymph % (Auto) [place] % (Auto) Eos % (Auto) Baso % (Auto) Neut # (Auto) Lymph # (Auto) [place] # (Auto) Eos # (Auto) Baso # (Auto) Immature Gran # (Auto) Acanthocytes (Spur) Sodium Potassium Chloride Carbon Dioxide Anion Gap BUN Creatinine Est Cr Clr Drug Dosing Est GFR ( Amer) Est GFR (Non-Af Amer) BUN/Creatinine Ratio Glucose Lactate 1.7 Calcium Magnesium Total Bilirubin Direct Bilirubin AST ALT Alkaline Phosphatase Troponin I High Sens C-Reactive Protein Pending Total Protein Albumin Procalcitonin SARS-CoV-2, RNA, NAAT NEGATIVE Medications Administered Current Inpatient Medications Acetaminophen (Acetaminophen 325 Mg Tab) 650 mg PO Q4H PRN PRN Reason: pain/fever Stop: 02/23/22 15:19 Finasteride (Finasteride 5 Mg Tab) 5 mg PO DAILY [facility] Stop: 02/24/22 08:59 Heparin Sodium (Porcine) (Heparin Sod 5,000 Unit/0.5 Ml Vial) 5,000 units SQ Q8H [facility] Stop: 02/23/22 15:44 Ampicillin Sodium/Sulbactam Sodium 3,000 mg/ Sodium Chloride 108 mls @ 200 mls/hr IV Q6H [facility]; Protocol Stop: 01/31/22 15:44 Metoprolol Succinate (Metoprolol Succ 25mg Ext Rel Tab) 25 mg PO DAILY [facility] Stop: 02/24/22 08:59 Miscellaneous Information (Vancomycin Consult Active) 1 each N/A UD PRN PRN Reason: Consult Stop: 02/23/22 10:08 Polyethylene Glycol (Polyethylene (Miralax) 17 Gm Pack) 17 gm PO DAILY PRN PRN Reason: Constipation Stop: 02/23/22 15:19 Pravastatin Sodium (Pravastatin Sod 10 Mg Tab) 10 mg PO DAILY [facility] Stop: 02/24/22 08:59 Spironolactone (Spironolactone 25 Mg Tab) 25 mg PO DAILY [facility] Stop: 02/24/22 08:59 Terazosin HCl (Terazosin Hcl 5 Mg Cap) 10 mg PO DAILY [facility] Stop: 02/24/22 08:59
[2022-01-24] MEDS: AMPICILLIN/SULBACTAM SOD 3,000 MG in 0.9 % SODIUM CHLORIDE 100 ML IV SCH ×2 (16:37→22:19)
[2022-01-24] MEDS: HEPARIN SOD 5,000 UNIT/0.5 ML VIAL SQ SCH ×2 (16:37→22:59)
--- NOTE | 2022-01-24 19:49 | Pharmacy Report ---
Pharmacy Vanc AUC Short Note - Date of Service January 24, 2022 - Assessment & Plan Assessment 86 year old M started on vancomycin and unasyn for possible pacemaker infection. He had surgery for pacemaker placement last month and presented to ER with erythema, purulence and oozing at this surgical site. Cardiology consulted. Day # 1 Plan Vancomycin * AUC/ARMIDA is the preferred PK/PD target for vancomycin * AUC guided dosing is effective and associated with decreased risk of nephrotoxicity compared to traditional trough targets * Patient received dose of vancomycin 1500 mg x 1 in the ER - will start vancomycin 1 gm iv q 18 hours * This dosing is estimated to achieve a trough level of ~16 mcg/mL is predicted to achieve target AUC/ARMIDA of 400-600 mg/L.hr and may be associated with a 12 % risk of nephrotoxicity * Will plan to order a level if continued >48 hours Pharmacy will continue to follow and will adjust dose/frequency as necessary. Thank you.
--- NOTE | 2022-01-24 20:48 | Ultrasound Report ---
US softtissue chstwall/uprback CLINICAL HISTORY: L Upper Chest, @ pacer site ?fluid/abscess TECHNIQUE: Real-time grayscale sonographic images of the left anterior chest wall were obtained. Comparison: None available at the time of this dictation. FINDINGS/IMPRESSION: No acute abnormality in particular no fluid collection is seen. ACT 112: Negative or not required by law. Electronically signed by: Reginald Pablo M.D. 01/24/2022 8:47 PM
[2022-01-24] MEDS: VANCOMYCIN HCL 1,000 MG in SODIUM CHLORIDE 0.9% 250 ML IV SCH ×2 (23:01→23:02)
[2022-01-25] MEDS: AMPICILLIN/SULBACTAM SOD 3,000 MG in 0.9 % SODIUM CHLORIDE 100 ML IV SCH ×2 (03:42→08:25)
[2022-01-25 06:09] LABS: C Reactive Protein < 0.50 mg/dl (0-0.5); Creatinine Clr Calc Pharmacy 54.7 ml/min; Est GFR (African American) 86.4 ml/min; Est GFR (Non-African American) 74.5 ml/min
[2022-01-25] MEDS: HEPARIN SOD 5,000 UNIT/0.5 ML VIAL SQ SCH (07:25)
[2022-01-25] MEDS ORDERED: TERAZOSIN HCL 5 MG CAP PO SCH (09:00)
[2022-01-25] MEDS ORDERED: SPIRONOLACTONE 25 MG TAB PO SCH (09:00)
[2022-01-25] MEDS ORDERED: FINASTERIDE 5 MG TAB PO SCH (09:00)
[2022-01-25] MEDS ORDERED: METOPROLOL SUCC 25MG EXT REL TAB PO SCH (09:00)
[2022-01-25] MEDS ORDERED: PRAVASTATIN SOD 10 MG TAB PO SCH (09:00)
--- NOTE | 2022-01-25 12:52 | Cardiology Progress Note ---
Date of Service January 25, 2022 Assessment & Plan (1) Postoperative wound infection: Plan: -Patient with noted superficial erythema and serosanguineous drainage from pacemaker incision. This does not seem to be affecting the pocket itself. -Recommend transitioning him to oral antibiotics, and close follow up as outpatient in cardiology clinic for wound check within around 3 days. I will request and appointment. -Patient denies any past allergies to antibiotics. I think that cephalexin would be reasonable. Be hesitant to utilize Bactrim given his age and risk of renal insufficiency/hyperkalemia. (2) Atrial fibrillation: Plan: -Patient with permanent atrial fibrillation, tachycardia-bradycardia syndrome, prompting single-chamber permanent pacemaker implantation 12/25/2021. -Continue metoprolol succinate 25 mg daily. -His Coumadin had been held last evening. We will check INR given recent administration of IV antibiotics. Per anticoagulation clinic notes in his [facility] chart dated 12/17/2021, he is on 2.5 mg of Coumadin every Thursday, 5 mg the remaining days. -He already has an anticoagulation clinic appointment for an in person finger stick INR scheduled at [facility] on 01/28/2022, 11:40 AM. Admission and Anticipated Discharge Date Admission Date: January 24, 2022 Subjective Patient seen in follow-up. He remains afebrile. Blood cultures are negative thus far. Review of Systems Review of Systems: All systems reviewed & are unremarkable except as noted in HPI & below Physical Exam Constitutional: WD/WN, vitals as above Respiratory: normal respiratory effort, lungs clear to auscultation Cardiovascular: RRR, no murmur, no edema Chest (Breasts): Additional Comments: Left infraclavicular device pocket clean dry, very minimal erythema noted at the lateral portion of the incision, no current drainage. No inflammation around the device. Results & Data ([facility]) Vital Signs (Past 12 Hours) Vital Signs Temp Pulse Pulse Resp BP BP Pulse Ox 01/25/22 11:55 36.9 C 58 L 20 120/76 96 01/25/22 08:26 36.9 C 65 20 134/81 95 01/25/22 07:13 60 01/25/22 03:29 36.8 C 63 20 126/79 96 O2 Del Method 01/25/22 11:55 Room Air 01/25/22 08:26 Room Air 01/25/22 07:13 01/25/22 03:29 Room Air Laboratory Results Comprehensive Metabolic Panel 01/25/22 Range/Units 05:13 Creatinine 0.92 (0.6-1.4) mg/dl Intake and Output 01/24/22 01/25/22 01/25/22 22:59 06:59 14:59 Intake Total 336 / 1364 378 / 1364 108 / 108 Balance 336 / 1364 378 / 1364 108 / 108 Intake: IV 216 / 1244 378 / 1244 108 / 108 Ampicillin/Sulbactam Sod 3,000 216 / 324 108 / 324 108 / 108 mg In 0.9 % Sodium Chloride 100 ml @ 200 mls/hr IV Q6H [facility] Rx# :[id number] Vancomycin HCl 1,000 mg In 270 / 270 Sodium Chloride 0.9% 250 ml @ 200 mls/hr IV Q18H [facility] Rx#: [id number] Oral 120 / 120 Other: Other Intake Source npo Weight 79 kg 77.6 kg Weight Measurement Method Standing Scale
[2022-01-25 13:13] LABS: Prothrombin Time 20.3 Seconds (9.0-12.0)
[2022-01-25] MEDS ORDERED: WARFARIN SOD 2.5 MG TAB PO STA (13:24)
--- NOTE | 2022-01-25 16:25 | Discharge Summary ---
Date of Service January 25, 2022 Admission HPI Per Admitting Provider Joseph is an 86-year-old male with a past medical history of A. fib, tachybradycardia syndrome s/p pacemaker placement, hypertension, DJD who had a pacemaker placed for tachybradycardia syndrome on 01/06/2022 and who presents with erythema, purulence, and oozing at his surgical site concerning for hardware infection. Case was discussed by ER provider with cardiology, recommended for admission to medical service, antibiotic treatment, and reevaluation for potential salvage. "Ken" is seen with his at the bedside. Reports his pacemaker started to have seepage of blood and pus starting day of admission. Mostly blood, some thick orange discharge. No white/milky discharge. NO change last few days. NO fevers or chills. NO pain overlying pacer site. No fluttering/palps. no chest pain, chest pressure, or chest discomfort. No shortness of breath. No nausea/vomiting/diarrhea. Denies any other symptoms, reports overall he feels well except he was concerned about the discharge which was just a couple of cc t his morning. No prior history of surgical site infections. No history of pseudomonal infections. Medical History: Reviewed Medications: Reviewed. Took meds this am. Surgical History: Reviewed Allergies: Reviewed Social History: No tobacco product use. No alcohol use. Code Status: Surrogate DM would be Mar[place] [phone]. DNR/DNI Principal Diagnosis Superficial pacemaker site infection vs. irritation Discharge Exam CV: RRR Skin: Pacemaker pocket site without warmth or tenderness. Incision with some mild redness. No purulence noted. Minimal serous drainage. Discharge Data Allergies Allergy/AdvReac Type Severity Reaction Status Date / Time aspirin Allergy Unknown SWELLING Verified 11/06/21 13:34 Consultations 01/24/22 13:52 ED Decision to Admit Stat 01/24/22 15:20 Consult Cardiology Routine Ordered Studies 01/24/22 15:20 [facility] Urgent Hospital Course (1) Pacemaker infection: Suspected pacemaker hardware infection No leukocytosis, afebrile Mild erythema on clinical evaluation, no purulence or discharge at time of assessment, overlying site is nontender and is not warm. Ultrasound without fluid collection. CRP normal. Blood cultures, wound culture from 01/24 all negative on discharge. Received empiric Vanco/Unasyn on admission > Evaluated with cardiology. Low concern for deep infection. Discharged on Keflex and Bacitracin ointment. F/u next week with cardiology. A. fib/tachybradycardia syndrome Pacer in place as above Continue metoprolol Admitting EKG: Ventricular paced rhythm, rate 84, QTc 42 Adequate rate, no chest pain, no concerning cardiac symptoms at admission - INR was 2.0. Given 1/2 dose (2.5 mg) on day of discharge. INR check on Thursday at [facility]. Hypertension Continue metoprolol and spironolactone Patient no longer takes losartan, hydrochlorothiazide, or hydralazine per review of medications with him and his BSG adequately controlled at admission HLD - Pravastatin 10mg (daily) BPH with LUTS, followed by urology Continue terazosin, finasteride (2) Atrial fibrillation: (3) Tachy-hood syndrome: (4) Benign localized prostatic hyperplasia with lower urinary tract symptoms (LUTS): (5) Hypertension: Total Time Total Time Spent Total Time Spent (In Minutes): 35 Discharge Plan Discharge Items Patient Disposition: Home - Self-Care Reason For Visit: ?PACER HARDWARE INFECTION Discharge Diagnosis: Concern for pacemaker pocket infection -> Thought to be unlikely. Activity: Resume your previous activity Non-emergency contact: Primary Care Provider and Hospital Librarian Call non-emergency contact if: your symptoms worsen and your temperature is above 101 Follow-up/Referrals: Dhiraj Cortez DO [Hospital Librarian] - Reji Rivera MD [Primary Care Provider] - Diet: Heart Healthy Addtl Attending Provider Instructions: Mr. Walls, We were worried about an infection at your pacemaker pocket, but luckily, we don't think it is infected. We think there might be a very mild infection on the skin though. Dr. Cortez feels we can send you home on oral antibiotics and so me topical ointment. Follow up on Thursday to get your INR checked at [facility] on 01/28/2022, 11:40 AM. Call your nail sticker or PCP if you see more redness, drainage, or other concerning symptoms. Pending Studies at Discharge: Yes Studies:: Culture results from blood and pacemaker wound Stand-Alone Forms: My [facility], Smoking Cessation Medications and DC Order Prescriptions: New cephalexin 500 mg capsule 500 mg PO Q8H Qty: 21 0RF mupirocin 2 % ointment 1 applic topical BID Qty: 15 0RF Continued diphenhydramine HCl [Benadryl Allergy] 25 mg tablet 25 mg PO TID PRN (Reason: Edema) epinephrine [EpiPen] 0.3 mg/0.3 mL auto-injector 0.3 mg IM Q10M PRN (Reason: Edema) losartan [Cozaar] 100 mg tablet 100 mg PO DAILY pravastatin 10 mg tablet 10 mg PO DAILY warfarin [Coumadin] 5 mg tablet 5 mg PO DAILY spironolactone 25 mg tablet 25 mg PO DAILY terazosin 10 mg capsule 10 mg PO DAILY Qty: 90 3RF prednisone 20 mg Tablet 20 mg PO DAILY PRN (Reason: Edema) hydralazine 25 mg Tablet 25 mg PO TID acetaminophen 500 mg Tablet 500 mg PO Q6H PRN (Reason: Pain) triamcinolone acetonide 0.1 % Cream 1 applic TOPICAL BID betamethasone dipropionate 0.05 % Cream 1 applic TOPICAL DAILY hydrochlorothiazide 25 mg Tablet 25 mg PO DAILY hydrocortisone 2.5 % Ointment 1 applic TOPICAL DAILY oxybutynin chloride 5 mg Tablet 5 mg PO DAILY finasteride 5 mg Tablet 5 mg PO DAILY metoprolol succinate 25 mg Tablet Extended Release 24 Hr 50 mg PO DAILY Qty: 60 11RF Rx Instructions: Take 0.5 tablets in the morning Discharge Orders: Discharge Order (Routine); Ordered 01/25/22 Ordered By: Karthik Ziegler Admission Data Admit Date/Time: 01/24/22 12:42 Attending Provider: Karthik Ziegler Admit Provider: Kojo Kirk Primary Care Provider: Reji Rivera Other Providers: Kojo Kirk ; Godfrey Sagastume Other Interventions: Discharge Summary Assessment (RN) Last Done: 01/25/22 14:17 Coding Level of Care Code D/C DAY MANAGEMENT >30 MINS Diagnoses Pacemaker infection T82.7XXA Atrial fibrillation I48.91 Tachy-hood syndrome I49.5 Benign localized prostatic hyperplasia with lower urinary tract symptoms (LUTS) N40.1 Hypertension I10
== END 2022-01-25 15:12 | disposition home or self-care (01) | DRG 315 ==
LOC: ED 09:51 → SUATTDRO 12:42 → 2N 12:42